=== PATIENT | male | born 1995 | race Caucasian/White ===

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

== ENCOUNTER → 2020-05-05 | Outpatient (CLI) | payer OTHER ==
--- NOTE | 2020-05-05 15:54 | US ---
EXAMINATION TYPE: US mass soft tissue chest/back DATE OF EXAM: 05/05/2020 COMPARISON: NONE CLINICAL HISTORY: R22.9 localized swelling, mass. lump left lower back for 3-4 months scanned within area of concern, left lower back, isoechoic area noted = 2.5 x 0.3 x 2.3cm, possible l ipoma IMPRESSION: There is a thin subcutaneous slightly hypoechoic area which is nonspecific at the level of concern. Findings may be related to a small lipoma.
== END | disposition home or self-care (01) ==
LOC: RADUSWWP 08:12
PROVIDERS: ATTEND Family Medicine
DX: R22.2 Localized swelling, mass and lump, trunk (principal)